=== PATIENT | female | born 1965 | race Caucasian/White ===

== ENCOUNTER 2016-06-01 10:56 | Emergency (ER) | payer MEDICAID, OTHER ==
--- NOTE | 2016-06-01 11:06 | ER Document Report ---
ED Medical Screen (RME) - General Stated Complaint: MOUTH PAIN Mode of Arrival: Ambulatory Information source: Patient Notes: Patient presents to the ED with multiple complaints. Reports headache from dental pain. C/O increased blood pressure, recently obtained medicaid, waiting for dental appointment june 26. Was prescribed antibiotics, penicillin, reports allergy. Was prescribed clindamycin but has not had it filled because she cannot afford it. Reports tramadol not helping pain. Reports cannot sleep. I have greeted and performed a rapid initial assessment of this patient. A comprehensive ED assessment and evaluation of the patient, analysis of test results and completion of the medical decision making process will be conducted by additional ED providers. TRAVEL OUTSIDE OF THE [place] IN LAST 30 DAYS: No - Related Data Allergies/Adverse Reactions: acetaminophen [From Tylenol] Allergy (Verified 01/30/15 16:18) Past Medical History Neurological Medical History: Reports: Hx Migraine, Hx Seizures. Denies: Hx Cerebrovascular Accident GI Medical History: Reports: Hx Hepatitis - Hep C Musculoskeltal Medical History: Reports Hx Arthritis, Reports Hx Fibromyalgia, Reports Hx Musculoskeletal Deformity, Reports Hx Musculoskeletal Trauma Skin Medical History: Reports Hx MRSA Psychiatric Medical History: Reports: Hx Bipolar Disorder Traumatic Medical History: Reports: Hx Fractures Infectious Medical History: Reports: Hx Hepatitis - Hep C, Hx MRSA Past Surgical History: Reports: Hx Breast Surgery - BREAST REDUCTION, Hx Tonsillectomy - Immunizations Hx Diphtheria, Pertussis, Tetanus Vaccination: No
[2016-06-01] MEDS ORDERED: CLINDAMYCIN HCL 150 MG CAPSULE PO ONE (11:44)
[2016-06-01] MEDS ORDERED: BUPIVACAINE HCL 0.5 % INJ/PF 30 ML SDV INJ ONE (11:44)
--- NOTE | 2016-06-01 11:50 | ER Document Report ---
HPI - HPI Patient complains to provider of: toothache Pain Level: 5 Context: Patient is a 50-year-old female presents emergency Department complaining of dental pain. Patient was recently seen at urgent care this past week for pain most severely in her left upper jaw and right lower jaw with multiple dental fractures that she's had for about a year. Patient states she is due to see a dentist on June 26 have her teeth pulled. Patient states that she went to urgent care she was put on penicillin tramadol and told to follow-up with her dentist. Patient states that she found out she was allergic to penicillin and was put on clindamycin but hasn't been able to pay for it, newly on Medicaid. At this time patient denies any difficulty swallowing, foul odor, muffled speech , drooling. Patient is able to tolerate by mouth without any difficulty, denies any fever, chills, lethargy. Patient also admits to right sciatica for chronic back pain. Patient denies any urinary/stool incontinence, saddle anesthesia. Patient able to ambulate. Not been doing any ice, heat. No stretches. Eyes any recent injury or fall. Patient is currently going through disability application, history of hep C. - REPRODUCTIVE Reproductive: DENIES: : - DERM Skin Color: Normal Past Medical History - General Information source: Patient - Social History Smoking Status: Never Smoker Chew tobacco use (# tins/day): No Frequency of alcohol use: Occasional Drug Abuse: None Family History: Reviewed & Not Pertinent Patient has suicidal ideation: No Patient has homicidal ideation: No Neurological Medical History: Reports: Hx Migraine, Hx Seizures. Denies: Hx Cerebrovascular Accident Renal/ Medical History: Denies: Hx Peritoneal Dialysis GI Medical History: Reports: Hx Hepatitis - Hep C Musculoskeltal Medical History: Reports Hx Arthritis, Reports Hx Fibromyalgia, Reports Hx Musculoskeletal Deformity, Reports Hx Musculoskeletal Trauma Skin Medical History: Reports Hx MRSA Psychiatric Medical History: Reports: Hx Bipolar Disorder Traumatic Medical History: Reports: Hx Fractures Infectious Medical History: Reports: Hx Hepatitis - Hep C, Hx MRSA Past Surgical History: Reports: Hx Breast Surgery - BREAST REDUCTION, Hx Tonsillectomy - Immunizations Hx Diphtheria, Pertussis, Tetanus Vaccination: No Vertical Provider Document - CONSTITUTIONAL Agree With Documented VS: Yes Exam Limitations: No Limitations General Appearance: WD/WN, No Apparent Distress - INFECTION CONTROL TRAVEL OUTSIDE OF THE [place] IN LAST 30 DAYS: No - HEENT HEENT: Atraumatic, Normal ENT Exam, Normocephalic, PERRLA Mouth Diagram: 1 - Dental caries 2 - Dental caries 3 - Dental caries Notes: Evidence of gingival inflammation, no evidence of abscess. No evidence of retropharyngeal or peritonsillar abscess. - NECK Neck: Normal Inspection. negative: Lymphadenopathy-Left, Lymphadenopathy-Right Notes: No evidence of Brandon angina - RESPIRATORY Respiratory: Breath Sounds Normal, No Respiratory Distress, Chest Non-Tender. negative: Rales, Rhonchi, Wheezing O2 Sat by Pulse Oximetry: 99 - CARDIOVASCULAR Cardiovascular: Regular Rate, Regular Rhythm, No Murmur Pulses: Normal: Radial - MUSCULOSKELETAL/EXTREMETIES Musculoskeletal/Extremeties: MAEW, FROM, Non-Tender, No Edema. negative: Eccymosis - NEURO Level of Consciousness: Awake, Alert, Appropriate Motor/Sensory: No Motor Deficit, No Sensory Deficit Course - Re-evaluation Re-evalutation: 06/01/16 11:48 Patient is a 50-year-old female presents emergency department with multiple complaints but. He #1 was tooth pain. Patient is on clindamycin for dental infection and taking tramadol which she says does not help with her symptoms for toothache. Due to follow up with dentist on June 26. Will do a Sensorcaine dental block at the bedside and have her follow-up with her dentist at her earliest convenience. Received 6ml total for dental block, 3ml for left upper and 3ml for right lower - Vital Signs Vital signs: Temp Pulse Resp BP Pulse Ox 97.8 F 78 20 145/101 H 99 06/01/16 11:00 06/01/16 11:00 06/01/16 11:00 06/01/16 11:00 06/01/16 11:00 Discharge - Discharge Clinical Impression: Tooth ache, Sciatic leg pain Condition: Good Disposition: HOME, SELF-CARE Instructions: [facility], Clindamycin ([facility]), Oral Narcotic Medication ([facility]), Sciatica ([facility]), Stretching Exercises for the Back ([facility]), Warm Packs ([facility]), Ice Packs ([facility]) Prescriptions: Oxycodone HCl 5 mg PO Q6HP PRN #15 tablet PRN Reason: Clindamycin HCl 150 mg PO QID 10 Days Forms: Elevated Blood Pressure
[2016-06-01 12:50] VITALS: BP 134/91
== END 2016-06-01 12:45 | disposition home or self-care (01) ==
LOC: ER 10:56
DX: K08.89 Other specified disorders of teeth and supporting structures (principal); M54.30 Sciatica, unspecified side
CPT/HCPCS: 99282; J3490

== ENCOUNTER 2016-07-18 14:50 | Emergency (ER) | payer MEDICAID, OTHER ==
--- NOTE | 2016-07-18 16:37 | ER Document Report ---
ED General - General Chief Complaint: Nausea Stated Complaint: NAUSEA,RIGHT LEG PAIN Notes: The patient is a 50-year-old female, past medical history bipolar, chronic right sciatica pain, presents with a dull right-sided headache after she hit her head a few days ago. She feels like her head is "foggy". In addition, she is having her usual right leg pain that is similar to her sciatica. She follows with her primary care physician and is taking Neurontin, tramadol and baclofen and is scheduled to see pain management for this pain. She is also feeling nauseous, but this resolved after using her Zofran at home. She denies LOC, syncope, neck pain, weakness, numbness, tingling, fevers, vomiting, abdominal pain or neck pain. TRAVEL OUTSIDE OF THE [place] IN LAST 30 DAYS: No - Related Data Allergies/Adverse Reactions: acetaminophen [From Tylenol] Allergy (Verified 07/18/16 16:10) Penicillins Allergy (Verified 07/18/16 16:10) Past Medical History - General Information source: Patient - Social History Smoking Status: Unknown if Ever Smoked Family History: Reviewed & Not Pertinent Patient has suicidal ideation: No Patient has homicidal ideation: No Neurological Medical History: Reports: Hx Migraine, Hx Seizures. Denies: Hx Cerebrovascular Accident Renal/ Medical History: Denies: Hx Peritoneal Dialysis GI Medical History: Reports: Hx Hepatitis - Hep C Musculoskeltal Medical History: Reports Hx Arthritis, Reports Hx Fibromyalgia, Reports Hx Musculoskeletal Deformity, Reports Hx Musculoskeletal Trauma Skin Medical History: Reports Hx MRSA Psychiatric Medical History: Reports: Hx Bipolar Disorder Traumatic Medical History: Reports: Hx Fractures Infectious Medical History: Reports: Hx Hepatitis - Hep C, Hx MRSA Past Surgical History: Reports: Hx Breast Surgery - BREAST REDUCTION, Hx Tonsillectomy - Immunizations Hx Diphtheria, Pertussis, Tetanus Vaccination: No Review of Systems - Review of Systems Notes: REVIEW OF SYSTEMS: CONSTITUTIONAL: -fevers, -chills EENT: -eye pain, -difficulty swallowing, -nasal congestion CARDIOVASCULAR:-chest pain, -syncope. RESPIRATORY: -cough, -SOB GASTROINTESTINAL: -abdominal pain, -nausea, -vomiting, -diarrhea GENITOURINARY: -dysuria, -hematuria MUSCULOSKELETAL: +right hip pain, -back pain, -neck pain SKIN: -rash or skin lesions. HEMATOLOGIC: -easy bruising or bleeding. LYMPHATIC: -swollen, enlarged glands. NEUROLOGICAL: -altered mental status or loss of consciousness, +headache PSYCHIATRIC: -anxiety, -depression. ALL OTHER SYSTEMS REVIEWED AND NEGATIVE. Physical Exam - Vital signs Vitals: Temp Pulse Resp BP Pulse Ox 97.8 F 83 18 137/103 H 99 07/18/16 14:55 07/18/16 14:55 07/18/16 14:55 07/18/16 14:55 07/18/16 14:55 - Notes Notes: PHYSICAL EXAMINATION: GENERAL: Well-appearing, well-nourished and in no acute distress. HEAD: Atraumatic, normocephalic. EYES: Pupils equal round and reactive to light, extraocular movements intact, sclera anicteric, conjunctiva are normal. ENT: nares patent, oropharynx clear without exudates. Moist mucous membranes. NECK: Normal range of motion, supple without lymphadenopathy LUNGS: Breath sounds clear to auscultation bilaterally and equal. No wheezes rales or rhonchi. HEART: Regular rate and rhythm without murmurs ABDOMEN: Soft, nontender, normoactive bowel sounds. No guarding, no rebound. No masses appreciated. EXTREMITIES: Normal range of motion, no pitting or edema. No cyanosis. NEUROLOGICAL: Cranial nerves grossly intact. Normal speech, normal gait. Tingling down back of right leg. PSYCH: Normal mood, normal affect. SKIN: Warm, Dry, normal turgor, no rashes or lesions noted. Course - Re-evaluation Re-evalutation: Patient's right hip pain and tingling down the back of her right leg is chronic in nature and she is following with her primary care physician and pain management physician. Strong distal pulses. Told her that management of her sciatica pain should be continued by her PMD and that the emergency room could not manage chronic issues. After she hit her head a few days ago, she has had a headache. Will obtain a head CT and provide pain medication. CT Head does not show any active bleeding or other acute issues. Her headache resolved after Fioricet. Do not suspect SAH, ICH or meningitis at this time. No other acute issues identified. Will have her follow-up with the primary care physician. - Vital Signs Vital signs: Temp Pulse Resp BP Pulse Ox 98.0 F 64 16 127/88 H 100 07/18/16 16:46 07/18/16 16:46 07/18/16 16:46 07/18/16 16:46 07/18/16 16:46 - Diagnostic Test Radiology reviewed: Image reviewed, Reports reviewed Radiology results interpreted by me: CT Head: NAD Discharge - Discharge Clinical Impression: Headache Qualifiers: Headache type: unspecified Headache chronicity pattern: unspecified pattern Intractability: not intractable Qualified Code(s): R51 - Headache Condition: Good Disposition: HOME, SELF-CARE Additional Instructions: Follow-up with your primary care physician and pain management physician for further treatment of your hip pain. Motrin for your headache. HEADACHE: The physician does not feel that the headache you are experiencing has a serious underlying cause. Most headaches are due to emotional stress, with resultant muscle tension (tension headache). Occasionally, headaches are secondary to changes in the blood vessels of the scalp (vascular headache and migraine headache). Sometimes, a headache is the first symptom of another developing illness, such as a viral infection. You have no evidence of stroke, bleeding, meningitis, or other serious cause of your headache. The treatment of headaches varies with the severity and cause of the pain. Not all headaches need pain shots. In fact, there is evidence that using narcotics for headaches may make them worse in the long run. The physician will determine the therapy that's in your best interest. If you develop a fever, if the headache is different from any you've previously experienced, or if the headache progressively worsens, then call your physician at once or go to the emergency room. FOLLOW-UP CARE: If you have been referred to a physician for follow-up care, call the physician s office for an appointment as you were instructed or within the next two days. If you experience worsening or a significant change in your symptoms, notify the physician immediately or return to the Emergency Department at any time for re-evaluation. Sciatica Your symptoms suggest "sciatica." The pain of sciatica typically radiates down the leg. Numbness in the foot or calf may also occur. Sciatica is caused by irritation of the sciatic nerve or its branches. The irritation can be due to a herniated disk in the spine, swelling and inflammation in the muscles surrounding the sciatic nerve, or direct injury of the nerve itself. Most cases of sciatica will resolve with medical treatment. Bed rest is usually recommended initially. Surgery is only necessary when the condition will not improve with rest and antiinflammatory medication. Muscle relaxers are often given if muscle soreness is present. A CAT scan of the back may be performed if a herniated disk is suspected. Re-examination is necessary if you develop increasing numbness, localized weakness in the foot or ankle, or if the pain does not respond to rest. Referrals: [facility] [Provider Group] - Follow up as needed
[2016-07-18 16:47] VITALS: BP 127/88
[2016-07-18] MEDS ORDERED: BUTALB/ACETAMINOPHEN/CAFFEINE 1 TAB EACH PO ONE (17:08)
== END 2016-07-18 16:50 | disposition home or self-care (01) ==
LOC: ER 14:50
DX: R51 Headache (principal); R11.0 Nausea; M79.604 Pain in right leg; Z79.899 Other long term (current) drug therapy
CPT/HCPCS: 99283; 70450; J3490

== ENCOUNTER → 2016-08-12 | Outpatient (CLI) | payer MEDICAID | LOC: WI 12:03 | PROVIDERS: ATTEND Internal Medicine Gastroenterology | DX: B18.2 Chronic viral hepatitis C (principal) | CPT/HCPCS: 76705 ==

== ENCOUNTER 2016-09-24 08:24 | Emergency (ER) | payer MEDICAID ==
[2016-09-24] MEDS ORDERED: DIPHENHYDRAMINE HCL 25 MG CAPSULE PO ONE (09:59)
--- NOTE | 2016-09-24 09:59 | ER Document Report ---
HPI - HPI Patient complains to provider of: bug bites Onset: Other - for the past two days Onset/Duration: Gradual Quality of pain: Other - itching Pain Level: 5 Associated Symptoms: Other - no draiange, swelling, warth/heat. denies: Fever Similar symptoms previously: No Recently seen / treated by doctor: No - CARDIOVASCULAR Cardiovascular: DENIES: Chest pain - REPRODUCTIVE Reproductive: DENIES: : Past Medical History - Social History Smoking Status: Never Smoker Chew tobacco use (# tins/day): No Frequency of alcohol use: None Drug Abuse: None Family History: Reviewed & Not Pertinent Patient has suicidal ideation: No Patient has homicidal ideation: No Neurological Medical History: Reports: Hx Migraine, Hx Seizures. Denies: Hx Cerebrovascular Accident Renal/ Medical History: Denies: Hx Peritoneal Dialysis GI Medical History: Reports: Hx Hepatitis - Hep C Musculoskeltal Medical History: Reports Hx Arthritis, Reports Hx Fibromyalgia, Reports Hx Musculoskeletal Deformity, Reports Hx Musculoskeletal Trauma Skin Medical History: Reports Hx MRSA Psychiatric Medical History: Reports: Hx Bipolar Disorder Traumatic Medical History: Reports: Hx Fractures Infectious Medical History: Reports: Hx Hepatitis - Hep C, Hx MRSA Past Surgical History: Reports: Hx Breast Surgery - BREAST REDUCTION, Hx Tonsillectomy - Immunizations Hx Diphtheria, Pertussis, Tetanus Vaccination: No Vertical Provider Document - CONSTITUTIONAL Agree With Documented VS: Yes Exam Limitations: No Limitations General Appearance: WD/WN, No Apparent Distress - INFECTION CONTROL TRAVEL OUTSIDE OF THE [place] IN LAST 30 DAYS: No - RESPIRATORY O2 Sat by Pulse Oximetry: 94 - DERM Integumentary: Warm, Dry, No Rash Adult Front & Back Diagram: 1 - 3 bug bites with central scabbing 2/2 patient continually pickaing at them , no evidence of cellulitis or abscess Course - Re-evaluation Re-evalutation: 09/24/16 9:45 Patient is a 51-year-old female hemodynamically stable, no acute distress and afebrile. Blood bites noted on right lower extremity without evidence of cellulitis or abscess. Discussed with patient to dressed with Band-Aid and antibacterial cream and to leave alone. Can follow-up with primary care as needed. - Vital Signs Vital signs: Temp Pulse Resp BP Pulse Ox 98.1 F 95 18 146/93 H 94 09/24/16 08:33 09/24/16 08:33 09/24/16 08:33 09/24/16 08:33 09/24/16 08:33 Discharge - Discharge Clinical Impression: Bug bites Condition: Good Disposition: HOME, SELF-CARE Instructions: Insect Bites ([facility]), Use of Diphenhydramine Additional Instructions: Dress with neosporin and band aids Benadryl as needed for the itching Do not pick or scratch Forms: Elevated Blood Pressure Referrals: BISHOP RUIZ MD [Primary Care Provider] - Follow up as needed
[2016-09-24 10:02] VITALS: BP 138/88
== END 2016-09-24 09:55 | disposition home or self-care (01) ==
LOC: ER 08:24
DX: S80.861A Insect bite (nonvenomous), right lower leg, initial encounter (principal); W57.XXXA Bitten or stung by nonvenomous insect and other nonvenomous arthropods, initial encounter; Z86.14 Personal history of Methicillin resistant Staphylococcus aureus infection
CPT/HCPCS: 99281

== ENCOUNTER 2016-10-10 03:16 | Emergency (ER) | payer MEDICAID ==
--- NOTE | 2016-10-10 05:15 | ER Document Report ---
ED Skin Rash/Insect Bite/Abscs - General Chief Complaint: Insect Bite Stated Complaint: ANKLE PAIN Time Seen by Provider: 10/10/16 04:17 Mode of Arrival: Ambulatory Information source: Patient Notes: 51-year-old female presents to ED for bites to right foot and ankle left ankle and right thigh. She states these areas are swollen and achy. TRAVEL OUTSIDE OF THE [place] IN LAST 30 DAYS: No - HPI Patient complains to provider of: Insect bite Onset: Other - Left fourth Onset/Duration: Gradual Quality of pain: Achy Severity: Moderate Pain Level: 2 Skin Character: Other - Insect bites to both ankles and left eye Quality of rash: Itchy, Painful Identify cause: No - Insect bite Exacerbated by: Denies Relieved by: Denies Similar symptoms previously: Yes Recently seen / treated by doctor: Yes - Related Data Allergies/Adverse Reactions: acetaminophen [From Tylenol] Allergy (Verified 10/10/16 05:45) Penicillins Allergy (Verified 10/10/16 05:45) Past Medical History - General Information source: Patient - Social History Smoking Status: Never Smoker Cigarette use (# per day): No Chew tobacco use (# tins/day): No Smoking Education Provided: No Frequency of alcohol use: None Drug Abuse: None Occupation: no Lives with: Friend Family History: Reviewed & Not Pertinent Patient has suicidal ideation: No Patient has homicidal ideation: No - Past Medical History Cardiac Medical History: Reports: None Pulmonary Medical History: Reports: None EENT Medical History: Reports: None Neurological Medical History: Reports: Hx Migraine, Hx Seizures Endocrine Medical History: Reports: None Renal/ Medical History: Reports: None Malignancy Medical History: Reports: None GI Medical History: Reports: Hx Hepatitis - Hep C Musculoskeltal Medical History: Reports Hx Arthritis, Reports Hx Fibromyalgia, Reports Hx Musculoskeletal Deformity, Reports Hx Musculoskeletal Trauma Skin Medical History: Reports Hx MRSA Psychiatric Medical History: Reports: Hx Bipolar Disorder Traumatic Medical History: Reports: Hx Fractures Infectious Medical History: Reports: Hx Hepatitis - Hep C, Hx MRSA Past Surgical History: Reports: Hx Breast Surgery - BREAST REDUCTION, Hx Tonsillectomy - Immunizations Hx Diphtheria, Pertussis, Tetanus Vaccination: No Review of Systems - Review of Systems Constitutional: No symptoms reported EENT: No symptoms reported Cardiovascular: No symptoms reported Respiratory: No symptoms reported Gastrointestinal: No symptoms reported Genitourinary: No symptoms reported Female Genitourinary: No symptoms reported Musculoskeletal: No symptoms reported Skin: Other - multiple insect bites to both ankles feet and left upper leg Hematologic/Lymphatic: No symptoms reported Neurological/Psychological: No symptoms reported -: Yes All other systems reviewed and negative Physical Exam - Vital signs Vitals: Temp Pulse Resp BP Pulse Ox 97.8 F 86 18 102/74 96 10/10/16 03:25 10/10/16 03:25 10/10/16 03:25 10/10/16 03:25 10/10/16 03:25 Interpretation: Normal - General General appearance: Appears well, Alert - HEENT Head: Normocephalic, Atraumatic Eyes: Normal Pupils: PERRL - Respiratory Respiratory status: No respiratory distress Chest status: Nontender Breath sounds: Normal Chest palpation: Normal - Cardiovascular Rhythm: Regular Heart sounds: Normal auscultation Murmur: No - Abdominal Inspection: Normal Distension: No distension Bowel sounds: Normal Tenderness: Nontender Organomegaly: No organomegaly - Back Back: Normal, Nontender - Extremities General upper extremity: Normal inspection, Nontender, Normal color, Normal ROM , Normal temperature General lower extremity: Normal inspection, Nontender, Normal color, Normal ROM , Normal temperature, Normal weight bearing. No: Debra's sign - Neurological Neuro grossly intact: Yes Cognition: Normal Orientation: AAOx4 [place] Coma Scale Eye Opening: Spontaneous [place] Coma Scale Verbal: Oriented [place] Coma Scale Motor: Obeys Commands [place] Coma Scale Total: 15 Speech: Normal Motor strength normal: LUE, RUE, LLE, RLE Sensory: Normal - Psychological Associated symptoms: Normal affect, Normal mood - Skin Skin Temperature: Warm Skin Moisture: Dry Skin Color: Normal Skin irregularity: Rash Location of irregularity: Extremities Irregularity with: Swelling, Tenderness Course - Vital Signs Vital signs: Temp Pulse Resp BP Pulse Ox 97.4 F 72 14 98/56 L 99 10/10/16 05:36 10/10/16 05:36 10/10/16 05:36 10/10/16 05:36 10/10/16 05:36 Discharge - Discharge Clinical Impression: Insect bite Qualifiers: Encounter type: initial encounter Qualified Code(s): W57.XXXA - Bitten or stung by nonvenomous insect and other nonvenomous arthropods, initial encounter Condition: Stable Disposition: HOME, SELF-CARE Additional Instructions: Insect Bites You have been bitten by an insect. These bites can cause two types of swelling: an initial swelling due to insect saliva or injected poison, and a late reaction due to your body's allergic reaction. This initial local reaction may be uncomfortable but is not dangerous. Often there's an itchy "hive" at the bite location. This is treated with antihistamines, cold compresses, and resting the affected body part. The later reaction often develops about the second day. The entire area becomes very swollen, red, itchy, and tender. This is an allergic reaction. Your body is attacking the leftover insect saliva or venom. This type of allergy is unpleasant, but not dangerous. We treat this swelling with cortisone -type medicine. Sometimes we use antibiotics if we're worried about infection. Antihistamines help with the itch. If you develop a fever, chills, a red streak, or swollen glands in the area of the bite, infection may be starting. Return at once. Diphenhydramine The use of diphenhydramine (Benadryl) has been recommended to control allergic symptoms. The 25 mg strength is available over- the-counter, as well as the elixir. This antihistamine is used for many symptoms. It's useful for itching, watering eyes and nose, allergic swelling, hives, and insect stings. The medication can be repeated four times daily. Age Elixir (12.5 mg/tsp) 25 mg pill 1 yr 1/4 tsp 2-3 yr 1/2 tsp 4-8 yr 1 tsp 9-14 yr 2 tsp one tab adult 1-2 tabs Antihistamines may cause drowsiness, especially with the first dose. Do not operate machinery or drive while under the effects of the medication. Do not combine the medication with alcohol, or with any other medication without talking to your doctor. Ice & Elevation Apply ice packs frequently against the painful area. Many different schedules are recommended, such as "20 minutes on, 20 minutes off" or "one hour ice, two hours rest." If you need to work, you may need to go longer between ice treatments. You should plan to have the area ice packed AT LEAST one- fourth of the time. The ice should be applied over the wrap, tape, or splint, or over a layer of cloth -- not directly against the skin. Some ice bags have a built-in cloth and can be put directly on the skin. Your injured part should be elevated as much as possible over the next 48 hours. Try to keep the injury above the level of the heart. Avoid use of the injured area. Elevation and rest will decrease the swelling. FOLLOW-UP CARE: If you have been referred to a physician for follow-up care, call the physician s office for an appointment as you were instructed or within the next two days. If you experience worsening or a significant change in your symptoms, notify the physician immediately or return to the Emergency Department at any time for re-evaluation.
[2016-10-10 05:39] VITALS: BP 98/56
== END 2016-10-10 05:36 | disposition home or self-care (01) ==
LOC: ER 03:16
DX: S90.561A Insect bite (nonvenomous), right ankle, initial encounter (principal); M79.651 Pain in right thigh; M25.571 Pain in right ankle and joints of right foot; M25.572 Pain in left ankle and joints of left foot; W57.XXXA Bitten or stung by nonvenomous insect and other nonvenomous arthropods, initial encounter
CPT/HCPCS: 99281

== ENCOUNTER → 2017-10-01 | Outpatient (CLI) | payer MEDICAID ==
--- NOTE | 2017-10-01 15:51 | WOMENS IMAGING REPORT ---
EXAM DESCRIPTION: BILAT SCREENING MAMMO W/CAD COMPLETED DATE/TIME: 10/01/2017 1:09 pm REASON FOR STUDY: ROUTINE SCREENING;Z12.31 Z12.31 ENCNTR SCREEN MAMMOGRAM FOR MALIGNANT NEOPLASM OF JUMANA COMPARISON: None available TECHNIQUE: Standard craniocaudal and mediolateral oblique views of each breast recorded using digita l acquisition. LIMITATIONS: None. FINDINGS: Findings present which are benign by mammographic criteria. No suspicious masses, calcifi cations or architectural distortion. Pertinent benign findings: Benign coarse dense right breast retroareolar calcification. Benign asymm etric fibroglandular tissue in the lateral aspect left breast. Postsurgical changes from remote prio r breast reduction. Read with the assistance of CAD. .[facility] - R2 Cenova Version 1.3 .[facility] Imaging - R2 Cenova Version 1.3 .[facility] - R2 Cenova Version 2.4 .[facility] [place] Cenova Version 2.4 .[facility] - R2 Shutdown Coordinator Version 9.2 Benign mammographic findings may include one or more of the following: Smooth masses, popcorn/rim/co arse calcifications, asymmetries, post-procedure changes, and lesions with long-standing stability. IMPRESSION: BENIGN MAMMOGRAPHIC FINDINGS. BIRADS 2 BREAST DENSITY: a. The breasts are almost entirely fatty. BIRAD: 2 BENIGN FINDING(S) RECOMMENDATION: ROUTINE SCREENING Please continue yearly bilateral screening mammography in September 2018. Consider bilateral screening to mosynthesis COMMENT: The patient has been notified of the results by letter per MQSA requirements. Additional no tification policies are in place for contacting patient with suspicious or incomplete findings. Quality ID #225: The [employer] recommends an annual screening mammogram for women aged 40 years or over. This facility utilizes a reminder system to ensure that all patients receive reminder letters, and/or direct phone calls for appointments. This includes reminders for routine scr eening mammograms, diagnostic mammograms, or other Breast Imaging Interventions when appropriate. Th is patient will be placed in the appropriate reminder system. The [employer] (ACR) has developed recommendations for screening MRI of the breast s in certain patient populations, to be used in conjunction with mammography. Breast MRI surveillanc e may be appropriate for women with more than 20% lifetime risk of developing breast cancer as deter mined by genetic testing, significant family history of the disease, or history of mantle radiation f or Hodgkins Disease. ACR Practice Guidelines 2008. TECHNICAL DOCUMENTATION: FINDING NUMBER: (1) ASSESSMENT: (1) JOB ID: [id number] [employer]- All Rights Reserved Reading location - IP/workstation name: [email or web address]
== END ==
LOC: WI 12:39
PROVIDERS: ATTEND Nurse Practitioner Family
DX: Z12.31 Encounter for screening mammogram for malignant neoplasm of breast (principal)
CPT/HCPCS: 77067

== ENCOUNTER → 2018-02-02 | Outpatient (CLI) | payer MEDICARE, MEDICAID ==
[2018-02-02 17:25] LABS: ABSOLUTE BASOPHILS # (AUTO) 0.1 10^3/uL (0.0-0.2); ABSOLUTE EOSINOPHILS # (AUTO) 0.1 10^3/uL (0.0-0.6); ABSOLUTE LYMPHOCYTES (AUTO) 2.1 10^3/uL (0.5-4.7); ABSOLUTE MONOCYTES (AUTO) 0.7 10^3/uL (0.1-1.4); ABSOLUTE NEUT (AUTO) 3.5 10^3/uL (1.7-8.2); BASOPHILS % (AUTO) 1.2 % (0-2); EOSINOPHILS % (AUTO) 1.7 % (0-6); HEMATOCRIT 42.9 % (36.0-47.0); HEMOGLOBIN 14.5 g/dL (12.0-15.5); LYMPHOCYTES % (AUTO) 32.8 % (13-45); MEAN CORPUSCULAR HEMOGLOBIN 31.4 pg (27.0-33.4); MEAN CORPUSCULAR HGB CONC 33.7 g/dL (32.0-36.0); MEAN CORPUSCULAR VOLUME 93 fl (80-97); MONOCYTES % (AUTO) 10.5 % (3-13); PLATELET COUNT 206 10^3/uL (150-450); SEGMENTED NEUTROPHILS % (AUTO) 53.8 % (42-78); TOTAL CELLS COUNTED % (AUTO) 100 %; WHITE BLOOD COUNT 6.4 10^3/uL (4.0-10.5)
[2018-02-02 17:40] LABS: ALANINE AMINOTRANSFERASE 22 U/L (9-52); ALBUMIN 4.5 g/dL (3.5-5.0); ALKALINE PHOSPHATASE 76 U/L (38-126); ANION GAP 12 (5-19); ASPARTATE AMINO TRANSFERASE 25 U/L (14-36); BILIRUBIN,DIRECT 0.1 mg/dL (0.0-0.4); BILIRUBIN,TOTAL 0.5 mg/dL (0.2-1.3); BLOOD UREA NITROGEN 26 mg/dL (7-20); CALCIUM 9.9 mg/dL (8.4-10.2); CARBON DIOXIDE 26 mmol/L (22-30); CHLORIDE 105 mmol/L (98-107); GLUCOSE 92 mg/dL (75-110); POTASSIUM 4.6 mmol/L (3.6-5.0); SODIUM 142.6 mmol/L (137-145); TOTAL PROTEIN 8.1 g/dL (6.3-8.2)
== END ==
LOC: OD 16:14
PROVIDERS: ATTEND Internal Medicine Gastroenterology
DX: B18.2 Chronic viral hepatitis C (principal)
CPT/HCPCS: 36415; 80053; 85025; 87521; 87522

== ENCOUNTER → 2018-06-23 | Outpatient (CLI) | payer MEDICAID, MEDICARE ==
--- NOTE | 2018-06-23 12:36 | RADIOLOGY REPORT (SQ) ---
EXAM DESCRIPTION: U/S ABDOMEN LIMITED W/O DOP COMPLETED DATE/TIME: 06/23/2018 12:17 pm REASON FOR STUDY: R10.11 RIGHT UPPER QUADRANT PAIN R10.11 RIGHT UPPER QUADRANT PAIN COMPARISON: 08/12/2016 TECHNIQUE: Dynamic and static grayscale images acquired of the abdomen and recorded on PACS. Coryo marcelo selected color Doppler and spectral images recorded. LIMITATIONS: None. FINDINGS: PANCREAS: No masses. The tail of the pancreas was poorly seen. LIVER: No masses. Echotexture normal. LIVER VASCULATURE: Normal directional flow of the main portal vein and hepatic veins. GALLBLADDER: No stones. Normal wall thickness. No pericholecystic fluid. ULTRASOUND-DETECTED ORR'S SIGN: Negative. INTRAHEPATIC DUCTS AND COMMON DUCT: CBD and intrahepatic ducts normal caliber. No filling defects. INFERIOR VENA CAVA: Normal flow. AORTA: No aneurysm. RIGHT KIDNEY: Normal size, 11.2 cm. Normal echogenicity. No solid or suspicious masses. No hydroneph rosis. No calcifications. PERITONEAL AND RIGHT PLEURAL SPACE: No ascites or effusions. OTHER: No other significant findings. IMPRESSION: NORMAL RIGHT UPPER QUADRANT ULTRASOUND. TECHNICAL DOCUMENTATION: JOB ID: [id number] [employer]- All Rights Reserved Reading location - IP/workstation name: [email or web address]
--- NOTE | 2018-06-23 15:23 | RADIOLOGY REPORT (SQ) ---
EXAM DESCRIPTION: NM HIDA SCAN WITH CCK COMPLETED DATE/TIME: 06/23/2018 2:49 pm REASON FOR STUDY: R10.11 RIGHT UPPER QUADRANT PAIN R10.11 RIGHT UPPER QUADRANT PAIN COMPARISON: None. RADIONUCLIDE AND DOSE: DOSAGE RADIONUCLIDE: 5.23 millicuries Tc99m Mebrofenin. DOSAGE CCK: 1.9 micrograms. DOSAGE MORPHINE: Not required. The route of agent administration: Intravenous TECHNIQUE: Serial imaging right upper quadrant up to 60 minutes following injection of radionuclide. CCK injected after gallbladder visualized. LIMITATIONS: None. FINDINGS: LIVER: Normal visualization without areas of photopenia. INTRAHEPATIC BILE DUCTS: Normal size and no delay in visualization. COMMON BILE DUCT: Normal without dilatation. GALLBLADDER: Normal visualization. Calculated ejection fraction of 29%. Normal range is greater th an 35%. PHYSICAL RESPONSE: Patients presenting complaint were reproduced. OTHER: No other significant finding. IMPRESSION: 1. ABNORMAL STUDY. GALLBLADDER EJECTION FRACTION OF 29%(normal range is greater than 35 %). EVIDENCE FOR BILIARY DYSKINESIS. 2. Patient's symptoms were reproduced following CCK administration. TECHNICAL DOCUMENTATION: JOB ID: [id number]- All Rights Reserved Reading location - IP/workstation name: [email or web address]
== END ==
LOC: RAD 14:53
PROVIDERS: ATTEND Internal Medicine Gastroenterology
DX: K82.8 Other specified diseases of gallbladder (principal); R10.11 Right upper quadrant pain
CPT/HCPCS: 76705; 78227; J2805; A9537; Q9969

== ENCOUNTER 2018-12-23 12:47 | Emergency (ER) | payer MEDICARE, MEDICAID ==
--- NOTE | 2018-12-23 13:32 | ER Document Report ---
ED Medical Screen (RME) - General TRAVEL OUTSIDE OF THE [place] IN LAST 30 DAYS: No <STEPHENIE CARMONA - Last Filed: 12/23/18 13:31> <BRETSAYDA Phillips - Last Filed: 12/23/18 16:21> - General Chief Complaint: Leg Swelling Stated Complaint: LEG SWELLING Time Seen by Provider: 12/23/18 13:11 Primary Care Provider: JORDAN LINO MD [ACTIVE STAFF] - Follow up as needed - [facility] Notes: 12/23/18 13:31 53-year-old female to the emergency department with multiple complaints. She reports bilateral leg swelling for some time that is gotten worse over the past week as well as left-sided chest pain that radiates down her arm for the past several days. She also reports multiple painful insect bites to her back that occurred yesterday. She states that an urgent care provider placed her on antibiotics and asked her to come to the emergency department for further evaluation of her leg swelling. She states that she has some shortness of breath as well. She denies any fevers, chills or any other complaints. Performed a brief medical screening exam on patient and have ordered initial lab work. We will have her follow with and further evaluated by main side provider. (STEPHENIE CARMONA) - Related Data Allergies/Adverse Reactions: acetaminophen [From Tylenol] Allergy (Verified 12/23/18 12:51) Penicillins Allergy (Verified 12/23/18 12:51) Past Medical History Neurological Medical History: Reports: Hx Migraine, Hx Seizures. Denies: Hx Cerebrovascular Accident Renal/ Medical History: Denies: Hx Peritoneal Dialysis GI Medical History: Reports: Hx Hepatitis - Hep C Musculoskeltal Medical History: Reports Hx Arthritis, Reports Hx Fibromyalgia, Reports Hx Musculoskeletal Deformity, Reports Hx Musculoskeletal Trauma Skin Medical History: Reports Hx MRSA Psychiatric Medical History: Reports: Hx Bipolar Disorder Traumatic Medical History: Reports: Hx Fractures Infectious Medical History: Reports: Hx Hepatitis - Hep C, Hx MRSA Past Surgical History: Reports: Hx Breast Surgery - BREAST REDUCTION, Hx Tonsillectomy - Immunizations Hx Diphtheria, Pertussis, Tetanus Vaccination: No <SETPHENIE CARMONA - Last Filed: 12/23/18 13:31> Physical Exam - General General appearance: Appears well, Alert - HEENT Head: Normocephalic, Atraumatic Eyes: Normal Conjunctiva: Normal Cornea: Normal Extraocular movements intact: Yes Pupils: PERRL - Respiratory Respiratory status: No respiratory distress Chest status: Nontender Breath sounds: Normal Chest palpation: Normal - Cardiovascular Rhythm: Regular Heart sounds: Normal auscultation Murmur: No - Abdominal Inspection: Normal Distension: No distension Bowel sounds: Normal Tenderness: Nontender - Back Back: Other - 3 small excoriations the patient states her bug bites does not appear infected approximately half centimeter diameter - Extremities General upper extremity: Normal inspection, Normal ROM General lower extremity: Other - +1 bilateral pitting edema lower extremities no signs of erythema no warmth - Neurological Neuro grossly intact: Yes Cognition: Normal Orientation: AAOx4 - Psychological Associated symptoms: Other - odd affect <SAYDA QUEEN - Last Filed: 12/23/18 16:21> - Vital signs Vitals: Temp Pulse Resp BP Pulse Ox 98.8 F 89 20 128/75 H 96 12/23/18 12:55 12/23/18 12:55 12/23/18 12:55 12/23/18 12:55 12/23/18 12:55 Course - Laboratory Result Diagrams: 12/23/18 14:38 12/23/18 14:38 <SAYDA QUEEN - Last Filed: 12/23/18 16:21> - Re-evaluation Re-evalutation: 12/23/18 16:18 All labs within normal limits are nonsignificant including normal troponin normal BNP. Patient does have bilateral leg swelling pending Doppler at this time but she states this is chronic in nature but is slightly worsened over the last 2 weeks. X-ray does not show any cardiomegaly and clear lung haque. Bi paulina on her back do not appear infected but she states she is on Keflex from an urgent care facility. Denies any chest pain or shortness of breath this time back and shoulder are chronic in nature. 12/23/18 16:20 (SAYDA QUEEN) - Vital Signs Vital signs: Temp Pulse Resp BP Pulse Ox 98.8 F 89 20 128/75 H 96 12/23/18 12:55 12/23/18 12:55 12/23/18 12:55 12/23/18 12:55 12/23/18 12:55 - Laboratory Laboratory results interpreted by me: 12/23/18 12/23/18 14:38 14:38 Carbon Dioxide 33 H Urine Blood SMALL H Ur Leukocyte Esterase LARGE H Doctor's Discharge <STEPHENIE CARMONA - Last Filed: 12/23/18 13:31> <SAYDA QUEEN - Last Filed: 12/23/18 16:21> - Discharge Referrals: JORDAN LINO MD [ACTIVE STAFF] - Follow up as needed
--- NOTE | 2018-12-23 14:40 | RADIOLOGY REPORT (SQ) ---
EXAM DESCRIPTION: CHEST 2 VIEWS COMPLETED DATE/TIME: 12/23/2018 2:11 pm REASON FOR STUDY: chest pain COMPARISON: None. EXAM PARAMETERS: NUMBER OF VIEWS: two views TECHNIQUE: Digital Frontal and Lateral radiographic views of the chest acquired. RADIATION DOSE: NA LIMITATIONS: none FINDINGS: LUNGS AND PLEURA: No opacities, masses or pneumothorax. No pleural effusion. MEDIASTINUM AND HILAR STRUCTURES: No masses or contour abnormalities. HEART AND VASCULAR STRUCTURES: Heart normal size. No evidence for failure. BONES: No acute findings. HARDWARE: None in the chest. OTHER: No other significant finding. IMPRESSION: No evidence of acute cardiopulmonary process. TECHNICAL DOCUMENTATION: JOB ID: [id number] [employer]- All Rights Reserved Reading location - IP/workstation name: [email or web address]
[2018-12-23 14:50] LABS: ABSOLUTE EOSINOPHILS # (AUTO) 0.1 10^3/uL (0.0-0.6); ABSOLUTE LYMPHOCYTES (AUTO) 1.5 10^3/uL (0.5-4.7); ABSOLUTE MONOCYTES (AUTO) 0.6 10^3/uL (0.1-1.4); BASOPHILS % (AUTO) 0.8 % (0-2); EOSINOPHILS % (AUTO) 2.5 % (0-6); HEMATOCRIT 38.1 % (36.0-47.0); HEMOGLOBIN 12.9 g/dL (12.0-15.5); LYMPHOCYTES % (AUTO) 29.1 % (13-45); MEAN CORPUSCULAR HEMOGLOBIN 31.2 pg (27.0-33.4); MEAN CORPUSCULAR HGB CONC 33.9 g/dL (32.0-36.0); MEAN CORPUSCULAR VOLUME 92 fl (80-97); MONOCYTES % (AUTO) 10.8 % (3-13); PLATELET COUNT 200 10^3/uL (150-450); RED BLOOD COUNT 4.14 10^6/uL (3.72-5.28); RED CELL DISTRIBUTION WIDTH 12.6 % (11.5-14.0); SEGMENTED NEUTROPHILS % (AUTO) 56.8 % (42-78); TOTAL CELLS COUNTED % (AUTO) 100 %; WHITE BLOOD COUNT 5.3 10^3/uL (4.0-10.5)
[2018-12-23 14:54] LABS: APPEARANCE,URINE SLIGHTLY-CLOUDY; BILIRUBIN,URINE NEGATIVE (NEGATIVE); COLOR,URINE YELLOW; GLUCOSE, URINE NEGATIVE (NEGATIVE); KETONES,URINE NEGATIVE (NEGATIVE); LEUKOCYTE ESTERASE,URINE LARGE (NEGATIVE); NITRITE,URINE NEGATIVE (NEGATIVE); PROTEIN,URINE NEGATIVE (NEGATIVE); URINE SPECIFIC GRAVITY 1.011; UROBILINOGEN,URINE NEGATIVE mg/dL (<2.0)
[2018-12-23 15:12] LABS: ALBUMIN 4.1 g/dL (3.5-5.0); ALKALINE PHOSPHATASE 58 U/L (38-126); ANION GAP 6 (5-19); ASPARTATE AMINO TRANSFERASE 35 U/L (14-36); BILIRUBIN,DIRECT 0.1 mg/dL (0.0-0.4); BILIRUBIN,TOTAL 0.5 mg/dL (0.2-1.3); BLOOD UREA NITROGEN 17 mg/dL (7-20); CALCIUM 9.4 mg/dL (8.4-10.2); CARBON DIOXIDE 33 mmol/L (22-30); CHLORIDE 102 mmol/L (98-107); GLUCOSE 91 mg/dL (75-110); POTASSIUM 4.5 mmol/L (3.6-5.0); TOTAL PROTEIN 7.1 g/dL (6.3-8.2)
[2018-12-23 15:23] LABS: NT PRO BNP 56 pg/mL (5-900)
[2018-12-23 15:25] LABS: TROPONIN I < 0.012 ng/mL
--- NOTE | 2018-12-23 15:34 | ER Document Report ---
ED General - General Chief Complaint: Leg Swelling Stated Complaint: LEG SWELLING Time Seen by Provider: 12/23/18 13:11 Primary Care Provider: JORDAN LINO MD [ACTIVE STAFF] - Follow up as needed TRAVEL OUTSIDE OF THE [place]. IN LAST 30 DAYS: No - HPI Notes: Patient presents with multiple complaints. She states that she has chronic lower back pain in her hips as well as her left shoulder and left elbow. No recent fevers or illnesses. She states that she has several bug bites back and was provided Keflex at the urgent care several days ago. She has been having chronic bilateral leg swelling for over 4 years and she said over the last 2 weeks has become worse in the absence of any chest pain or shortness of breath and she was concerned about her legs. She also states due to her chronic pain she is on Redfox. Her biggest concern is regarding her legs. She does not have any history of blood clots in her lungs or legs. - Related Data Allergies/Adverse Reactions: acetaminophen [From Tylenol] Allergy (Verified 12/23/18 12:51) Penicillins Allergy (Verified 12/23/18 12:51) Past Medical History - Social History Smoking Status: Unknown if Ever Smoked Family History: Reviewed & Not Pertinent Patient has suicidal ideation: No Patient has homicidal ideation: No Neurological Medical History: Reports: Hx Migraine, Hx Seizures. Denies: Hx Cerebrovascular Accident Renal/ Medical History: Denies: Hx Peritoneal Dialysis GI Medical History: Reports: Hx Hepatitis - Hep C Musculoskeletal Medical History: Reports Hx Arthritis, Reports Hx Fibromyalgia, Reports Hx Musculoskeletal Deformity, Reports Hx Musculoskeletal Trauma Skin Medical History: Reports Hx MRSA Psychiatric Medical History: Reports: Hx Bipolar Disorder Traumatic Medical History: Reports: Hx Fractures Infectious Medical History: Reports: Hx Hepatitis - Hep C, Hx MRSA Past Surgical History: Reports: Hx Breast Surgery - BREAST REDUCTION, Hx Tonsillectomy - Immunizations Hx Diphtheria, Pertussis, Tetanus Vaccination: No Review of Systems - Review of Systems Constitutional: No symptoms reported EENT: No symptoms reported Cardiovascular: No symptoms reported Respiratory: No symptoms reported Gastrointestinal: No symptoms reported Genitourinary: No symptoms reported Female Genitourinary: No symptoms reported Musculoskeletal: See HPI Skin: See HPI Hematologic/Lymphatic: No symptoms reported Neurological/Psychological: No symptoms reported Physical Exam - Vital signs Vitals: Temp Pulse Resp BP Pulse Ox 98.8 F 89 20 128/75 H 96 12/23/18 12:55 12/23/18 12:55 12/23/18 12:55 12/23/18 12:55 12/23/18 12:55 - General General appearance: Appears well, Alert - Eating food at bedside - HEENT Head: Normocephalic, Atraumatic Eyes: Normal Conjunctiva: Normal Cornea: Normal Extraocular movements intact: Yes Pupils: PERRL - Respiratory Respiratory status: No respiratory distress Chest status: Nontender Breath sounds: Normal Chest palpation: Normal - Cardiovascular Rhythm: Regular Heart sounds: Normal auscultation Murmur: No - Abdominal Inspection: Normal Distension: No distension Bowel sounds: Normal Tenderness: Nontender - Back Back: Other - Small half centimeter excoriations that patient states her bug bites that do not appear infected - Extremities General upper extremity: Normal inspection, Normal ROM General lower extremity: Other - Loss 1 bilateral lower extremity edema up to knees with no signs of erythema or infection or warmth - Neurological Neuro grossly intact: Yes Cognition: Normal Orientation: AAOx4 Course - Re-evaluation Re-evalutation: 12/23/18 16:21 All labs within normal limits are nonsignificant including normal troponin normal BNP. Patient does have bilateral leg swelling pending Doppler at this time but she states this is chronic in nature but is slightly worsened over the last 2 weeks. X-ray does not show any cardiomegaly and clear lung haque. Bites on her back do not appear infected but she states she is on Keflex from an urgent care facility. Denies any chest pain or shortness of breath this time back and shoulder are chronic in nature. 12/23/18 16:47 Negative DVT study. Discussed findings with patient. Advised to use compression stockings and to continue taking her medications as prescribed. Patient understands and agrees with plan for reevaluation with her primary care doctor in 1 week if symptoms are not improving. - Vital Signs Vital signs: Temp Pulse Resp BP Pulse Ox 98.8 F 89 20 128/75 H 96 12/23/18 12:55 12/23/18 12:55 12/23/18 12:55 12/23/18 12:55 12/23/18 12:55 - Laboratory Result Diagrams: 12/23/18 14:38 12/23/18 14:38 Laboratory results interpreted by me: 12/23/18 12/23/18 14:38 14:38 Carbon Dioxide 33 H Urine Blood SMALL H Ur Leukocyte Esterase LARGE H - EKG Interpretation by Me EKG shows normal: Sinus rhythm Rate: Normal Rhythm: NSR - Normal axis and intervals no concerning ST depressions or elevations Discharge - Discharge Clinical Impression: Peripheral edema Condition: Good Disposition: HOME, SELF-CARE Instructions: Edema, Peripheral ([facility]) Additional Instructions: Please wear your compression stockings and keep her legs elevated at night and while lying down. Please seek medical reevaluation in the next 3 to 5 days if symptoms not improving with your primary care physician or the emergency department for any other concerns. Referrals: JORDAN LINO MD [ACTIVE STAFF] - Follow up as needed
[2018-12-23] MEDS ORDERED: RINGERS SOLUTION,LACTATED 1,000 ML IV ONE (16:52)
--- NOTE | 2018-12-23 17:10 | RADIOLOGY REPORT (SQ) ---
EXAM DESCRIPTION: VENOUS BILATERAL LOWER COMPLETED DATE/TIME: 12/23/2018 4:57 pm REASON FOR STUDY: leg swelling COMPARISON: None. TECHNIQUE: Dynamic and static ambrosio scale and color images acquired of both lower extremity venous sy stems. Selected spectral images acquired with additional compression and augmentation maneuvers. Imag es stored on PACS. LIMITATIONS: None. FINDINGS: RIGHT LEG COMMON FEMORAL AND FEMORAL: Normal phasicity, compression and augmentation. No visualized echogenic m aterial on ambrosio scale. No defects on color images. POPLITEAL: Normal compression and augmentation. No visualized echogenic material on ambrosio scale. No de fects on color images. CALF VESSELS: Normal compression and augmentation. No visualized echogenic material on ambrosio scale. No defects on color image. GSV AND SSV: Normal compression. No visualized echogenic material on ambrosio scale. No defects on color images. ANY DEEP VENOUS INSUFFICIENCY: Not evaluated. ANY EVIDENCE OF POPLITEAL CYST: No. OTHER: No other significant finding. LEFT LEG COMMON FEMORAL AND FEMORAL: Normal phasicity, compression and augmentation. No visualized echogenic m aterial on ambrosio scale. No defects on color images. POPLITEAL: Normal compression and augmentation. No visualized echogenic material on ambrosio scale. No de fects on color images. CALF VESSELS: Normal compression and augmentation. No visualized echogenic material on ambrosio scale. No defects on color images. GSV AND SSV: Normal compression. No visualized echogenic material on ambrosio scale. No defects on color images. ANY DEEP VENOUS INSUFFICIENCY: Not evaluated. ANY EVIDENCE POPLITEAL CYST: No. OTHER: No other significant finding. IMPRESSION: NO EVIDENCE DVT OR SVT IN EITHER LEG. COMMENT: The findings were sent to the Radiology Results Communication Center at 17:04 on 12/23/2018 to be communicated to a licensed caregiver. TECHNICAL DOCUMENTATION: JOB ID: [id number] [employer]- All Rights Reserved Reading location - IP/workstation name: [email or web address]
[2018-12-23 17:16] VITALS: BP 137/80
--- NOTE | 2018-12-23 18:28 | EKG REPORT ---
SEVERITY:- OTHERWISE NORMAL ECG - SINUS RHYTHM RIGHT AXIS DEVIATION : Confirmed by: Rashard Haddad MD 23-Dec-2018 18:27:46
== END 2018-12-23 17:21 | disposition home or self-care (01) ==
LOC: ER 12:47
DX: R60.0 Localized edema (principal); M54.5 Low back pain; G89.29 Other chronic pain; M25.512 Pain in left shoulder; M25.522 Pain in left elbow; Z79.899 Other long term (current) drug therapy
CPT/HCPCS: 36415; 71046; 80053; 81001; 83880; 84484; 85025; 93005; 93010; 93970; 99284

== ENCOUNTER 2018-12-27 12:52 | Emergency (ER) | payer MEDICARE, MEDICAID ==
--- NOTE | 2018-12-27 13:05 | ER Document Report ---
ED Medical Screen (RME) - General Stated Complaint: SHORTNESS OF BREATH Time Seen by Provider: 12/27/18 12:59 Primary Care Provider: ALKA MCCURDY MD [Primary Care Provider] - Follow up as needed Mode of Arrival: Ambulatory Information source: Patient Notes: 53-year-old female presents today with complaints of shortness of breath with back pain complaints her hands feel like they are on fire when water touches THEM. Reports that she vomited today. Patient reports shortness of breath started yesterday. Reports she was evaluated in the emergency department Friday for bilateral leg swelling left arm pain. Patient is talking very quickly respiratory rate even unlabored no retractions. I have greeted and performed a rapid initial assessment of this patient. A comprehensive ED assessment and evaluation of the patient, analysis of test results and completion of the medical decision making process will be conducted by additional ED providers. Dictation of this chart was performed using voice recognition software; therefore, there may be some unintended grammatical errors. TRAVEL OUTSIDE OF THE [place] IN LAST 30 DAYS: No - Related Data Allergies/Adverse Reactions: acetaminophen [From Tylenol] Allergy (Verified 12/27/18 13:02) Penicillins Allergy (Verified 12/27/18 13:02) Past Medical History Neurological Medical History: Reports: Hx Migraine, Hx Seizures. Denies: Hx Cerebrovascular Accident Renal/ Medical History: Denies: Hx Peritoneal Dialysis GI Medical History: Reports: Hx Hepatitis - Hep C Musculoskeltal Medical History: Reports Hx Arthritis, Reports Hx Fibromyalgia, Reports Hx Musculoskeletal Deformity, Reports Hx Musculoskeletal Trauma Skin Medical History: Reports Hx MRSA Psychiatric Medical History: Reports: Hx Bipolar Disorder Traumatic Medical History: Reports: Hx Fractures Infectious Medical History: Reports: Hx Hepatitis - Hep C, Hx MRSA Past Surgical History: Reports: Hx Breast Surgery - BREAST REDUCTION, Hx Tonsillectomy - Immunizations Hx Diphtheria, Pertussis, Tetanus Vaccination: No Doctor's Discharge - Discharge Referrals: ALKA MCCURDY MD [Primary Care Provider] - Follow up as needed
[2018-12-27 14:15] LABS: APPEARANCE,URINE CLOUDY; BILIRUBIN,URINE NEGATIVE (NEGATIVE); COLOR,URINE AMBER; GLUCOSE, URINE NEGATIVE (NEGATIVE); KETONES,URINE NEGATIVE (NEGATIVE); LEUKOCYTE ESTERASE,URINE NEGATIVE (NEGATIVE); NITRITE,URINE NEGATIVE (NEGATIVE); PROTEIN,URINE NEGATIVE (NEGATIVE); URINE SPECIFIC GRAVITY 1.019; UROBILINOGEN,URINE NEGATIVE mg/dL (<2.0)
[2018-12-27 14:15] LABS: ALBUMIN 3.6 g/dL (3.5-5.0); ALKALINE PHOSPHATASE 81 U/L (38-126); ANION GAP 11 (5-19); ASPARTATE AMINO TRANSFERASE 39 U/L (14-36); BILIRUBIN,DIRECT 0.2 mg/dL (0.0-0.4); BILIRUBIN,TOTAL 0.6 mg/dL (0.2-1.3); BLOOD UREA NITROGEN 35 mg/dL (7-20); CARBON DIOXIDE 24 mmol/L (22-30); CHLORIDE 105 mmol/L (98-107); CREATINE KINASE 290 U/L (30-135); GLUCOSE 104 mg/dL (75-110); POTASSIUM 3.9 mmol/L (3.6-5.0); TOTAL PROTEIN 6.5 g/dL (6.3-8.2)
--- NOTE | 2018-12-27 14:16 | RADIOLOGY REPORT (SQ) ---
EXAM DESCRIPTION: CHEST 2 VIEWS COMPLETED DATE/TIME: 12/27/2018 2:06 pm REASON FOR STUDY: SOB COMPARISON: 12/23/2018 EXAM PARAMETERS: NUMBER OF VIEWS: two views TECHNIQUE: Digital Frontal and Lateral radiographic views of the chest acquired. RADIATION DOSE: NA LIMITATIONS: none FINDINGS: LUNGS AND PLEURA: No opacities, masses or pneumothorax. No pleural effusion. MEDIASTINUM AND HILAR STRUCTURES: No masses or contour abnormalities. HEART AND VASCULAR STRUCTURES: Heart normal size. No evidence for failure. BONES: No acute findings. HARDWARE: None in the chest. OTHER: No other significant finding. IMPRESSION: NO ACUTE RADIOGRAPHIC FINDING IN THE CHEST. TECHNICAL DOCUMENTATION: JOB ID: [id number] [employer]- All Rights Reserved Reading location - IP/workstation name: [email or web address]
[2018-12-27] MEDS ORDERED: NORMAL SALINE 500 ML IV ONE (14:32)
[2018-12-27] MEDS ORDERED: TRAMADOL HCL 50 MG TABLET PO ONE (14:32)
--- NOTE | 2018-12-27 14:38 | ER Document Report ---
ED General - General Chief Complaint: Shortness Of Breath Stated Complaint: SHORTNESS OF BREATH Time Seen by Provider: 12/27/18 12:59 Primary Care Provider: ALKA MCCURDY MD [Primary Care Provider] - Follow up as needed Mode of Arrival: Ambulatory TRAVEL OUTSIDE OF THE [place] IN LAST 30 DAYS: No - HPI Notes: This is a 53-year-old female who presents today with multiple complaints. Patient complains of pain all over her body for the past several days. She also complains of a gradual onset frontal headache, associated with blurred vision and photophobia. She also states has had some slight cough and trouble breathing. Patient states that her doctor told her she had fibromyalgia. Patient denies any substernal chest pressure. She denies any vomiting or diarrhea. Patient notes that she was here recently with similar presentations. She states she felt better but now symptoms have recurred. She denies any fever or chills. Her frontal headache is throbbing, gradual onset, and worse with light exposure. She denies any neck pain or stiffness. Patient also notes that she has been feeling very tired lately. She says she has been sleeping a lot lately. States he fell asleep at home in the kitchen a few days ago, and fell. Patient states that she thinks that she was bitten by either ticks or bedbugs at her friend's house. [place] She states that that is when his symptoms started. - Related Data Allergies/Adverse Reactions: acetaminophen [From Tylenol] Allergy (Verified 12/27/18 13:02) Penicillins Allergy (Verified 12/27/18 13:02) Past Medical History - General Information source: Patient - Social History Smoking Status: Current Every Day Smoker Frequency of alcohol use: None Drug Abuse: None Family History: Reviewed & Not Pertinent Neurological Medical History: Reports: Hx Migraine, Hx Seizures. Denies: Hx Cerebrovascular Accident Renal/ Medical History: Denies: Hx Peritoneal Dialysis GI Medical History: Reports: Hx Hepatitis - Hep C Musculoskeletal Medical History: Reports Hx Arthritis, Reports Hx Fibromyalgia, Reports Hx Musculoskeletal Deformity, Reports Hx Musculoskeletal Trauma Skin Medical History: Reports Hx MRSA Psychiatric Medical History: Reports: Hx Bipolar Disorder Traumatic Medical History: Reports: Hx Fractures Infectious Medical History: Reports: Hx Hepatitis - Hep C, Hx MRSA Past Surgical History: Reports: Hx Breast Surgery - BREAST REDUCTION, Hx Tonsillectomy - Immunizations Hx Diphtheria, Pertussis, Tetanus Vaccination: No Review of Systems - Review of Systems Constitutional: Malaise. denies: Fever Cardiovascular: denies: Chest pain, Palpitations, Heart racing Respiratory: Cough, Short of breath Gastrointestinal: denies: Abdominal pain, Diarrhea, Nausea, Vomiting Musculoskeletal: Back pain, Joint pain, Muscle pain. denies: Neck pain Neurological/Psychological: Headaches. denies: Confusion, Weakness, Numbness -: Yes All other systems reviewed and negative Physical Exam - Vital signs Vitals: Temp Pulse Resp BP Pulse Ox 98.0 F 107 H 16 110/69 96 12/27/18 13:02 12/27/18 13:02 12/27/18 13:02 12/27/18 13:02 12/27/18 13:02 - General General appearance: Appears well, Alert - HEENT Head: Normocephalic, Atraumatic Eyes: Normal Pupils: PERRL - Respiratory Respiratory status: No respiratory distress Chest status: Nontender Breath sounds: Normal Chest palpation: Normal - Cardiovascular Rhythm: Regular Heart sounds: Normal auscultation Murmur: No - Abdominal Inspection: Normal Distension: No distension Bowel sounds: Normal Tenderness: Nontender Organomegaly: No organomegaly - Back Back: Normal - Patient has what appears to be an insect bite buck in the back. She states she is taking antibiotics for it., Nontender - Extremities General upper extremity: Normal inspection, Nontender, Normal color, Normal ROM, Normal temperature General lower extremity: Normal inspection, Nontender, Normal color, Normal ROM, Normal temperature. No: Debra's sign - Neurological Neuro grossly intact: Yes Cognition: Normal Orientation: AAOx4 [place] Coma Scale Eye Opening: Spontaneous [place] Coma Scale Verbal: Oriented [place] Coma Scale Motor: Obeys Commands Hodan Coma Scale Total: 15 Speech: Normal Motor strength normal: LUE, RUE, LLE, RLE Sensory: Normal Notes: There is no motor, sensory or cerebellar deficits. Nonfocal neurologic exam. GCS is 15. NIH stroke score is 0. - Skin Skin Temperature: Warm - Patient has a rash on her back is consistent with insect bite. No fluctuance to suggest drainable abscess. Patient states she is on antibiotics for it. Skin Moisture: Dry Skin Color: Normal Course - Re-evaluation Re-evalutation: 12/27/18 14:41 Differential diagnosis includes generalized malaise versus migraine versus fibromyalgia versus viral syndrome versus pneumonia versus bronchitis versus electrolyte abnormalities versus [place] spotted fever. Will check basic labs. Will get head CT. There is no clinical suspicion for acute coronary syndrome or CVA. EKG shows normal sinus rhythm at 91 bpm. Right axis deviation. No acute injury pattern. 12/27/18 16:23 Patient reevaluated. She feels better. Labs reviewed. Given leukocytosis, history of body aches and slight headaches, question tick bite/exposure, I will cover her with doxycycline for possible [place] spotted fever. We will give her fluid bolus given her slightly elevated creatinine. 12/27/18 19:08 Patient reevaluated. Patient feels much better. Labs and imaging reviewed and discussed. Follow-up discussed with patient. She is stable for discharge. - Vital Signs Vital signs: Temp Pulse Resp BP Pulse Ox 98.0 F 107 H 17 115/77 100 12/27/18 13:02 12/27/18 13:02 12/27/18 17:01 12/27/18 17:01 12/27/18 16:47 - Laboratory Result Diagrams: 12/27/18 15:29 12/27/18 13:23 Laboratory results interpreted by me: 12/27/18 12/27/18 12/27/18 13:23 13:54 15:29 WBC 19.7 H Hgb 11.6 L Hct 35.5 L Plt Count 145 L Lymph % (Auto) 9.3 L Absolute Neuts (auto) 16.0 H Absolute Monos (auto) 1.8 H Seg Neutrophils % 80.9 H BUN 35 H Creatinine 1.68 H Est GFR ( Amer) 38 L Est GFR (MDRD) Non-Af 32 L AST 39 H Creatine Kinase 290 H Urine Blood SMALL H Discharge - Discharge Clinical Impression: Malaise and fatigue, RMSF ([place] spotted fever), Generalized headaches Tick bite Qualifiers: Encounter type: initial encounter Qualified Code(s): W57.XXXA - Bitten or stung by nonvenomous insect and other nonvenomous arthropods, initial encounter URI (upper respiratory infection) Qualifiers: URI type: unspecified URI Qualified Code(s): J06.9 - Acute upper respiratory infection, unspecified Condition: Stable Disposition: HOME, SELF-CARE Instructions: Upper Respiratory Illness ([facility]), Tick Bites ([facility]), Headache ([facility]) Additional Instructions: Return if worse or concerns. Prescriptions: Tramadol HCl [Ultram 50 mg Tablet] 50 mg PO Q4HP PRN #12 tab PRN Reason: Doxycycline Monohydrate 100 mg PO BID #20 capsule Referrals: ALKA MCCURDY MD [Primary Care Provider] - Follow up as needed
--- NOTE | 2018-12-27 15:23 | RADIOLOGY REPORT (SQ) ---
EXAM DESCRIPTION: CT HEAD WITHOUT COMPLETED DATE/TIME: 12/27/2018 3:12 pm REASON FOR STUDY: Headaches, blurred vision COMPARISON: CT brain 07/18/2016 TECHNIQUE: Axial images acquired through the brain without intravenous contrast. Images reviewed wi th bone, brain and subdural windows. Additional sagittal and coronal reconstructions were generated. Images stored on PACS. All CT scanners at this facility use dose modulation, iterative reconstruction, and/or weight based d osing when appropriate to reduce radiation dose to as low as reasonably achievable (ALARA). [facility]: Dose Right [facility]: CareDose [facility]: Dose Right [facility]: Teradose 4D [facility]: Globe Icons Interactive RADIATION DOSE: CT Rad equipment meets quality standard of care and radiation dose reduction techniq ues were employed. CTDIvol: 53.2 mGy. DLP: 911 mGy-cm. mGy. LIMITATIONS: None. FINDINGS: VENTRICLES: Normal size and contour. CEREBRUM: No masses. No hemorrhage. No midline shift. No evidence for acute infarction. Normal gra y/white matter differentiation. No areas of low density in the white matter. CEREBELLUM: No masses. No hemorrhage. No alteration of density. No evidence for acute infarction. EXTRAAXIAL SPACES: No fluid collections. No masses. ORBITS AND GLOBE: No intra- or extraconal masses. Normal contour of globe without masses. CALVARIUM: No fracture. PARANASAL SINUSES: No fluid or mucosal thickening. SOFT TISSUES: No mass or hematoma. OTHER: No other significant finding. IMPRESSION: NORMAL BRAIN CT WITHOUT CONTRAST. EVIDENCE OF ACUTE STROKE: NO. COMMENT: Quality ID # [id number]: Final reports with documentation of one or more dose reduction techniques (e.g., Automated exposure control, adjustment of the mA and/or kV according to patient size, use of iterative reconstruction technique) TECHNICAL DOCUMENTATION: JOB ID: [id number] [employer]- All Rights Reserved Reading location - IP/workstation name: [email or web address]
[2018-12-27 15:41] LABS: ABSOLUTE EOSINOPHILS # (AUTO) 0.1 10^3/uL (0.0-0.6); ABSOLUTE LYMPHOCYTES (AUTO) 1.8 10^3/uL (0.5-4.7); ABSOLUTE MONOCYTES (AUTO) 1.8 10^3/uL (0.1-1.4); BASOPHILS % (AUTO) 0.2 % (0-2); EOSINOPHILS % (AUTO) 0.7 % (0-6); HEMATOCRIT 35.5 % (36.0-47.0); HEMOGLOBIN 11.6 g/dL (12.0-15.5); LYMPHOCYTES % (AUTO) 9.3 % (13-45); MEAN CORPUSCULAR HEMOGLOBIN 30.4 pg (27.0-33.4); MEAN CORPUSCULAR HGB CONC 32.8 g/dL (32.0-36.0); MEAN CORPUSCULAR VOLUME 93 fl (80-97); MONOCYTES % (AUTO) 8.9 % (3-13); PLATELET COUNT 145 10^3/uL (150-450); RED BLOOD COUNT 3.83 10^6/uL (3.72-5.28); RED CELL DISTRIBUTION WIDTH 13.3 % (11.5-14.0); SEGMENTED NEUTROPHILS % (AUTO) 80.9 % (42-78); TOTAL CELLS COUNTED % (AUTO) 100 %; WHITE BLOOD COUNT 19.7 10^3/uL (4.0-10.5)
[2018-12-27] MEDS ORDERED: NORMAL SALINE 1000 ML 1,000 ML IV ONE (16:24)
--- NOTE | 2018-12-27 17:42 | EKG REPORT ---
SEVERITY:- OTHERWISE NORMAL ECG - SINUS RHYTHM BORDERLINE RIGHT AXIS DEVIATION : Confirmed by: Rashard Haddad MD 27-Dec-2018 17:40:54
[2018-12-27] MEDS ORDERED: DOXYCYCLINE HYCLATE 100 MG TABLET PO ONE (19:07)
[2018-12-27 19:31] VITALS: BP 110/75
== END 2018-12-27 19:30 | disposition home or self-care (01) ==
LOC: ER 12:52
DX: A77.0 Spotted fever due to Rickettsia rickettsii (principal); T14.8XXA Other injury of unspecified body region, initial encounter; W57.XXXA Bitten or stung by nonvenomous insect and other nonvenomous arthropods, initial encounter; J06.9 Acute upper respiratory infection, unspecified; R51 Headache; H53.149 Visual discomfort, unspecified; H53.8 Other visual disturbances; R53.81 Other malaise; R53.83 Other fatigue; R05 Cough; R06.02 Shortness of breath; M54.9 Dorsalgia, unspecified; R21 Rash and other nonspecific skin eruption; M25.50 Pain in unspecified joint; M79.10 Myalgia, unspecified site; F17.200 Nicotine dependence, unspecified, uncomplicated; Z86.69 Personal history of other diseases of the nervous system and sense organs; Z88.8 Allergy status to other drugs, medicaments and biological substances; Z88.0 Allergy status to penicillin; D72.829 Elevated white blood cell count, unspecified
CPT/HCPCS: 93005; 99285; 96360; 36415; 82550; 85025; 80053; 81001; 84484; 71046; 70450; 93010; A9270 ×2; J7030; J7040

== ENCOUNTER 2019-05-24 11:20 | Emergency (ER) | payer MEDICARE, MEDICAID ==
[2019-05-24 11:33] VITALS: BP 133/79
[2019-05-24] MEDS ORDERED: DIPHENHYDRAMINE HCL 50 MG CAPSULE PO ONE (11:58)
[2019-05-24] MEDS ORDERED: KETOROLAC TROMETHAMINE 10 MG TABLET PO ONE (11:58)
[2019-05-24] MEDS ORDERED: METOCLOPRAMIDE HCL 10 MG TABLET PO ONE (11:58)
--- NOTE | 2019-05-24 11:59 | ER Document Report ---
ED Medical Screen (RME) - General TRAVEL OUTSIDE OF THE [place] IN LAST 30 DAYS: No <VLAD HEADLEY - Last Filed: 05/24/19 11:59> <PERCY KEMP P - Last Filed: 05/24/19 15:29> - General Chief Complaint: Headache Stated Complaint: HEADACHE/RASH,BACK PAIN Time Seen by Provider: 05/24/19 11:47 Primary Care Provider: ALKA MCCURDY MD [Primary Care Provider] - Follow up as needed - Related Data Allergies/Adverse Reactions: acetaminophen [From Tylenol] Allergy (Verified 05/24/19 11:45) Penicillins Allergy (Verified 05/24/19 11:45) Past Medical History Neurological Medical History: Reports: Hx Migraine, Hx Seizures. Denies: Hx Cerebrovascular Accident Renal/ Medical History: Denies: Hx Peritoneal Dialysis GI Medical History: Reports: Hx Hepatitis - Hep C Musculoskeltal Medical History: Reports Hx Arthritis, Reports Hx Fibromyalgia, Reports Hx Musculoskeletal Deformity, Reports Hx Musculoskeletal Trauma Skin Medical History: Reports Hx MRSA Psychiatric Medical History: Reports: Hx Bipolar Disorder Traumatic Medical History: Reports: Hx Fractures Infectious Medical History: Reports: Hx Hepatitis - Hep C, Hx MRSA Past Surgical History: Reports: Hx Breast Surgery - BREAST REDUCTION, Hx Tonsillectomy - Immunizations Hx Diphtheria, Pertussis, Tetanus Vaccination: No <VLAD HEADLEY - Last Filed: 05/24/19 11:59> Physical Exam - Vital signs Vitals: Temp Pulse Resp BP Pulse Ox 98.4 F 92 17 133/79 H 98 05/24/19 11:31 05/24/19 11:31 05/24/19 11:31 05/24/19 11:31 05/24/19 11:31 Course - Laboratory Result Diagrams: 05/24/19 14:24 05/24/19 14:24 <PERCY KEMP P - Last Filed: 05/24/19 15:29> - Vital Signs Vital signs: Temp Pulse Resp BP Pulse Ox 98.4 F 92 17 133/79 H 98 05/24/19 11:31 05/24/19 11:31 05/24/19 11:31 05/24/19 11:31 05/24/19 11:31 - Laboratory Laboratory results interpreted by me: 02/17/20 14:24 RBC 3.60 L Hgb 10.8 L Hct 32.3 L Doctor's Discharge <VLAD HEADLEY - Last Filed: 05/24/19 11:59> <PERCY KEMP - Last Filed: 05/24/19 15:29> - Discharge Clinical Impression: Fibromyalgia Condition: Good Instructions: Headache ([facility]), Antinausea Medication ([facility]), Reglan ([facility]) Additional Instructions: Take medicine as directed. Rest. Fluids. Please return here for any problems or any concerns. Referrals: ALKA MCCURDY MD [Primary Care Provider] - Follow up as needed
[2019-05-24 14:45] LABS: ABSOLUTE EOSINOPHILS # (AUTO) 0.1 10^3/uL (0.0-0.6); ABSOLUTE LYMPHOCYTES (AUTO) 1.5 10^3/uL (0.5-4.7); ABSOLUTE MONOCYTES (AUTO) 0.5 10^3/uL (0.1-1.4); ABSOLUTE NEUT (AUTO) 4.4 10^3/uL (1.7-8.2); BASOPHILS % (AUTO) 0.6 % (0-2); EOSINOPHILS % (AUTO) 1.3 % (0-6); HEMATOCRIT 32.3 % (36.0-47.0); HEMOGLOBIN 10.8 g/dL (12.0-15.5); LYMPHOCYTES % (AUTO) 23.3 % (13-45); MEAN CORPUSCULAR HGB CONC 33.5 g/dL (32.0-36.0); MEAN CORPUSCULAR VOLUME 90 fl (80-97); MONOCYTES % (AUTO) 8.2 % (3-13); PLATELET COUNT 214 10^3/uL (150-450); RED CELL DISTRIBUTION WIDTH 13.1 % (11.5-14.0); SEGMENTED NEUTROPHILS % (AUTO) 66.6 % (42-78); TOTAL CELLS COUNTED % (AUTO) 100 %; WHITE BLOOD COUNT 6.5 10^3/uL (4.0-10.5)
[2019-05-24 14:50] LABS: ALBUMIN 4.1 g/dL (3.5-5.0); ALKALINE PHOSPHATASE 69 U/L (38-126); ANION GAP 7 (5-19); ASPARTATE AMINO TRANSFERASE 28 U/L (14-36); BILIRUBIN,DIRECT 0.1 mg/dL (0.0-0.4); BILIRUBIN,TOTAL 0.4 mg/dL (0.2-1.3); BLOOD UREA NITROGEN 13 mg/dL (7-20); CALCIUM 9.6 mg/dL (8.4-10.2); CARBON DIOXIDE 29 mmol/L (22-30); CHLORIDE 103 mmol/L (98-107); GLUCOSE 90 mg/dL (75-110); POTASSIUM 4.8 mmol/L (3.6-5.0); TOTAL PROTEIN 7.5 g/dL (6.3-8.2)
[2019-05-24 15:33] LABS: APPEARANCE,URINE CLEAR; BILIRUBIN,URINE NEGATIVE (NEGATIVE); COLOR,URINE YELLOW; GLUCOSE, URINE NEGATIVE (NEGATIVE); KETONES,URINE NEGATIVE (NEGATIVE); PROTEIN,URINE NEGATIVE (NEGATIVE); UROBILINOGEN,URINE NEGATIVE mg/dL (<2.0)
--- NOTE | 2019-05-26 14:42 | ER Document Report ---
Entered by CARI SHARMA SCRIBE 05/24/19 1536 Acting as scribe for:PERCY KEMP DO ED General - General Chief Complaint: Skin Sore(s) Stated Complaint: HEADACHE/RASH,BACK PAIN Time Seen by Provider: 05/24/19 11:47 Primary Care Provider: ALKA MCCURDY MD [Primary Care Provider] - Follow up as needed Mode of Arrival: Ambulatory Information source: Patient Notes: This 53 year old female patient presents to the emergency department today with complaints of back pain and "lesions" that she describes as bed bug bites. Patient goes swiftly from one complaint to another including bugs, pulling out her left eyebrow, and back pain. TRAVEL OUTSIDE OF THE [place] IN LAST 30 DAYS: No - Related Data Allergies/Adverse Reactions: acetaminophen [From Tylenol] Allergy (Verified 05/24/19 11:45) Penicillins Allergy (Verified 05/24/19 11:45) Home Medications: realo/y[address] rd Past Medical History - General Information source: Patient - Social History Smoking Status: Never Smoker Cigarette use (# per day): No Chew tobacco use (# tins/day): No Frequency of alcohol use: Occasional Drug Abuse: None Lives with: Family Family History: Reviewed & Not Pertinent Patient has suicidal ideation: No Patient has homicidal ideation: No Neurological Medical History: Reports: Hx Migraine, Hx Seizures. Denies: Hx Cerebrovascular Accident Renal/ Medical History: Denies: Hx Peritoneal Dialysis GI Medical History: Reports: Hx Hepatitis - Hep C Musculoskeletal Medical History: Reports Hx Arthritis, Reports Hx Fibromyalgia, Reports Hx Musculoskeletal Deformity, Reports Hx Musculoskeletal Trauma Skin Medical History: Reports Hx MRSA Psychiatric Medical History: Reports: Hx Bipolar Disorder Traumatic Medical History: Reports: Hx Fractures Infectious Medical History: Reports: Hx Hepatitis - Hep C, Hx MRSA Past Surgical History: Reports: Hx Breast Surgery - BREAST REDUCTION, Hx Tonsillectomy - Immunizations Hx Diphtheria, Pertussis, Tetanus Vaccination: No Review of Systems - Review of Systems Constitutional: No symptoms reported EENT: No symptoms reported Cardiovascular: No symptoms reported Respiratory: No symptoms reported Gastrointestinal: No symptoms reported Genitourinary: No symptoms reported Female Genitourinary: No symptoms reported Musculoskeletal: No symptoms reported Skin: See HPI, Lesions Hematologic/Lymphatic: No symptoms reported Neurological/Psychological: No symptoms reported -: Yes All other systems reviewed and negative Physical Exam - Vital signs Vitals: Temp Pulse Resp BP Pulse Ox 98.4 F 92 17 133/79 H 98 05/24/19 11:31 05/24/19 11:31 05/24/19 11:31 05/24/19 11:31 05/24/19 11:31 - Notes Notes: Physical Exam: General: Alert. HEENT: Normocephalic. Atraumatic. PERRL. Extraocular movements intact. Oropharynx clear. Neck: Supple. Non-tender. Respiratory: No respiratory distress. Clear and equal breath sounds bilaterally. Cardiovascular: Regular rate and rhythm. Abdominal: Normal Inspection. Non-tender. No distension. Normal Bowel Sounds. Back: No gross abnormalities. Extremities: Moves all four extremities. Upper extremities: Normal inspection. Normal ROM. Lower extremities: Normal inspection. No edema. Normal ROM. Neurological: Normal cognition. AAOx4. Normal speech. Psychological: Bizarre affect. Flight of ideas. Skin: Warm. Dry. Normal color. - Genitourinary External exam: Other - There is a less than 1 cm area of induration to the right labia Course - Vital Signs Vital signs: Temp Pulse Resp BP Pulse Ox 98.4 F 92 17 133/79 H 98 05/24/19 11:31 05/24/19 11:31 05/24/19 11:31 05/24/19 11:31 05/24/19 11:31 - Laboratory Result Diagrams: 05/24/19 14:24 05/24/19 14:24 Laboratory results interpreted by me: 05/24/19 05/24/19 14:24 15:11 RBC 3.60 L Hgb 10.8 L Hct 32.3 L Leukocyte Esterase Rfl TRACE H Discharge - Discharge Clinical Impression: Fibromyalgia Condition: Good Disposition: HOME, SELF-CARE Instructions: Antinausea Medication ([facility]), Headache ([facility]), Reglan ([facility]) Additional Instructions: Take medicine as directed. Rest. Fluids. Please return here for any problems or any concerns. Prescriptions: Sulfamethoxazole/Trimethoprim [Bactrim 400-80 mg Tablet] 1 each PO BID #20 tablet Referrals: ALKA MCCURDY MD [Primary Care Provider] - Follow up as needed I personally performed the services described in the documentation, reviewed and edited the documentation which was dictated to the scribe in my presence, and it accurately records my words and actions.
== END 2019-05-24 16:11 | disposition home or self-care (01) ==
LOC: ER 11:20
DX: M79.7 Fibromyalgia (principal); L98.9 Disorder of the skin and subcutaneous tissue, unspecified; Z88.8 Allergy status to other drugs, medicaments and biological substances; Z88.0 Allergy status to penicillin
CPT/HCPCS: 99283; 36415; 87086; 85025; 80053; 81001; A9270 ×3; J3490

== ENCOUNTER 2019-06-01 14:59 | Emergency (ER) | payer MEDICARE, MEDICAID ==
[2019-06-01] MEDS ORDERED: ONDANSETRON 4 MG TAB.RAPDIS PO ONE (16:02)
--- NOTE | 2019-06-01 16:05 | ER Document Report ---
ED Medical Screen (RME) - General Chief Complaint: Dizziness Stated Complaint: DIZZINESS Time Seen by Provider: 06/01/19 15:51 Primary Care Provider: ALKA MCCURDY MD [Primary Care Provider] - Follow up as needed Mode of Arrival: Wheelchair Information source: Patient Notes: 53-year-old female presents to ED for complaint of headache dizziness head spinning nausea. She states she felt like she had to go to the bathroom so she went to the bathroom her head started spinning she felt like she was going to fall over into the bathroom floor. She states she got up she took some lisinopril because she is supposed to take that for her blood pressure. She states this all started at 9 [id number] this afternoon she got the stomach cramps again started to go to the bathroom she had hot flashes dizziness spinning in her head and felt like she was going to fall out again. Patient is alert oriented respirations regular nonlabored speaking in full sentences. She states she does go to pain management when she has the money to go she also sees bam Moctezuma at [facility]. I have greeted and performed a rapid initial assessment of this patient. A comprehensive ED assessment and evaluation of the patient, analysis of test results and completion of medical decision making process will be conducted by an additional ED providers. TRAVEL OUTSIDE OF THE [place] IN LAST 30 DAYS: No - Related Data Allergies/Adverse Reactions: acetaminophen [From Tylenol] Allergy (Verified 05/24/19 11:45) Penicillins Allergy (Verified 05/24/19 11:45) Past Medical History Neurological Medical History: Reports: Hx Migraine, Hx Seizures. Denies: Hx C erebrovascular Accident Renal/ Medical History: Denies: Hx Peritoneal Dialysis GI Medical History: Reports: Hx Hepatitis - Hep C Musculoskeltal Medical History: Reports Hx Arthritis, Reports Hx Fibromyalgia, Reports Hx Musculoskeletal Deformity, Reports Hx Musculoskeletal Trauma Skin Medical History: Reports Hx MRSA Psychiatric Medical History: Reports: Hx Bipolar Disorder Traumatic Medical History: Reports: Hx Fractures Infectious Medical History: Reports: Hx Hepatitis - Hep C, Hx MRSA Past Surgical History: Reports: Hx Breast Surgery - BREAST REDUCTION, Hx Tonsillectomy - Immunizations Hx Diphtheria, Pertussis, Tetanus Vaccination: No Physical Exam - Vital signs Vitals: Temp Pulse Resp BP Pulse Ox 98 F 84 18 139/87 H 100 06/01/19 15:10 06/01/19 15:10 06/01/19 15:10 06/01/19 15:10 06/01/19 15:10 Course - Vital Signs Vital signs: Temp Pulse Resp BP Pulse Ox 98 F 84 18 139/87 H 100 06/01/19 15:10 06/01/19 15:10 06/01/19 15:10 06/01/19 15:10 06/01/19 15:10 Doctor's Discharge - Discharge Referrals: ALKA MCCURDY MD [Primary Care Provider] - Follow up as needed
[2019-06-01] MEDS ORDERED: IBUPROFEN 600 MG TABLET PO ONE (16:06)
[2019-06-01 17:17] LABS: ABSOLUTE EOSINOPHILS # (AUTO) 0.1 10^3/uL (0.0-0.6); ABSOLUTE LYMPHOCYTES (AUTO) 1.9 10^3/uL (0.5-4.7); ABSOLUTE MONOCYTES (AUTO) 0.5 10^3/uL (0.1-1.4); BASOPHILS % (AUTO) 0.7 % (0-2); EOSINOPHILS % (AUTO) 1.5 % (0-6); HEMOGLOBIN 14.7 g/dL (12.0-15.5); LYMPHOCYTES % (AUTO) 28.4 % (13-45); MEAN CORPUSCULAR HEMOGLOBIN 29.7 pg (27.0-33.4); MEAN CORPUSCULAR HGB CONC 33.3 g/dL (32.0-36.0); MEAN CORPUSCULAR VOLUME 89 fl (80-97); MONOCYTES % (AUTO) 7.7 % (3-13); PLATELET COUNT 294 10^3/uL (150-450); RED BLOOD COUNT 4.93 10^6/uL (3.72-5.28); RED CELL DISTRIBUTION WIDTH 13.3 % (11.5-14.0); SEGMENTED NEUTROPHILS % (AUTO) 61.7 % (42-78); TOTAL CELLS COUNTED % (AUTO) 100 %; WHITE BLOOD COUNT 6.6 10^3/uL (4.0-10.5)
[2019-06-01 17:38] LABS: ALBUMIN 4.3 g/dL (3.5-5.0); ALKALINE PHOSPHATASE 97 U/L (38-126); ANION GAP 7 (5-19); ASPARTATE AMINO TRANSFERASE 24 U/L (14-36); BILIRUBIN,TOTAL 0.2 mg/dL (0.2-1.3); BLOOD UREA NITROGEN 15 mg/dL (7-20); CALCIUM 9.9 mg/dL (8.4-10.2); CARBON DIOXIDE 31 mmol/L (22-30); CHLORIDE 104 mmol/L (98-107); GLUCOSE 139 mg/dL (75-110); POTASSIUM 4.6 mmol/L (3.6-5.0); TOTAL PROTEIN 7.6 g/dL (6.3-8.2)
[2019-06-01 18:49] LABS: APPEARANCE,URINE CLEAR; BILIRUBIN,URINE NEGATIVE (NEGATIVE); COLOR,URINE YELLOW; GLUCOSE, URINE NEGATIVE (NEGATIVE); KETONES,URINE NEGATIVE (NEGATIVE); PROTEIN,URINE NEGATIVE (NEGATIVE); URINE SPECIFIC GRAVITY 1.015; UROBILINOGEN,URINE NEGATIVE mg/dL (<2.0)
--- NOTE | 2019-06-01 18:53 | ER Document Report ---
ED General - General Chief Complaint: Dizziness Stated Complaint: DIZZINESS Time Seen by Provider: 06/01/19 15:51 Primary Care Provider: ALKA MCCURDY MD [ACTIVE STAFF] - Follow up as needed ANNIE PAN MD [ACTIVE STAFF] - Follow up as needed Mode of Arrival: Wheelchair Information source: Patient TRAVEL OUTSIDE OF THE [place] IN LAST 30 DAYS: No - HPI Onset: This morning - but she has had off and on dizzy spells for months Onset/Duration: Sudden Quality of pain: No pain Severity: Moderate Associated symptoms: Nausea, Vomiting Exacerbated by: Other - head movements Relieved by: Remaining still Similar symptoms previously: Yes - several times in the past Recently seen / treated by doctor: Yes - [place] seen in this ER on 05/24/19 for skin rash and headaches Notes: 53 year old female with a history of Migraines, Hep C, Bipolar, Breast Cancer here for an episode of dizziness like the room was spinning and nausea that lasted about 15 min. The patient says she felt like she may pass out but she never did. The patient says she has had mild dizzy spells like this in the past but she has never had one as bad as she did today. The patient denies fevers, chills, sweats, chest pain, headaches. The patient denies recent ringing in her ears. The patient has many other medical complaints such as a chronic skin condition, chronic eye floaters, chronic pain. - Related Data Allergies/Adverse Reactions: acetaminophen [From Tylenol] Allergy (Verified 05/24/19 11:45) Penicillins Allergy (Verified 05/24/19 11:45) Past Medical History - General Information source: Patient - Social History Smoking Status: Former Smoker Frequency of alcohol use: None Drug Abuse: None Lives with: Other - patient has roommates in a [place]iler Family History: Reviewed & Not Pertinent Patient has suicidal ideation: No Patient has homicidal ideation: No Neurological Medical History: Reports: Hx Migraine, Hx Seizures. Denies: Hx Cerebrovascular Accident Renal/ Medical History: Denies: Hx Peritoneal Dialysis GI Medical History: Reports: Hx Hepatitis - Hep C Musculoskeletal Medical History: Reports Hx Arthritis, Reports Hx Fibromyalgia, Reports Hx Musculoskeletal Deformity, Reports Hx Musculoskeletal Trauma Skin Medical History: Reports Hx MRSA Psychiatric Medical History: Reports: Hx Bipolar Disorder Traumatic Medical History: Reports: Hx Fractures Infectious Medical History: Reports: Hx Hepatitis - Hep C, Hx MRSA Past Surgical History: Reports: Hx Breast Surgery - BREAST REDUCTION, Hx Tonsillectomy - Immunizations Hx Diphtheria, Pertussis, Tetanus Vaccination: No Review of Systems - Review of Systems Constitutional: No symptoms reported EENT: No symptoms reported Cardiovascular: Lightheaded, Other - pre-syncope Respiratory: No symptoms reported Gastrointestinal: Nausea Genitourinary: No symptoms reported Female Genitourinary: No symptoms reported Musculoskeletal: No symptoms reported Skin: Lesions - red raised areas throughout skin Hematologic/Lymphatic: No symptoms reported Neurological/Psychological: Other - Dizziness -: Yes All other systems reviewed and negative Physical Exam - Vital signs Vitals: Temp Pulse Resp BP Pulse Ox 98 F 84 18 139/87 H 100 06/01/19 15:10 06/01/19 15:10 06/01/19 15:10 06/01/19 15:10 06/01/19 15:10 - Notes Notes: GENERAL: Well-appearing, well-nourished and in no acute distress. HEAD: Atraumatic, normocephalic. EYES: Pupils equal round and reactive to light, extraocular movements intact, sclera anicteric, conjunctiva are normal. ENT: Left TM with cerumen impaction. Right TM Normal. nares patent, oropharynx clear without exudates. Moist mucous membranes. NECK: Normal range of motion, supple without lymphadenopathy or JVD. LUNGS: Breath sounds clear to auscultation bilaterally and equal. No wheezes rales or rhonchi. HEART: Regular rate and rhythm without murmurs, rubs or gallops. ABDOMEN: Soft, nontender, normoactive bowel sounds. No guarding, no rebound. No masses appreciated. EXTREMITIES: Normal range of motion, no pitting or edema. No clubbing or cyanosis. NEUROLOGICAL: Cranial nerves II through XII grossly intact. Normal speech, normal gait. PSYCH: Normal mood, normal affect. SKIN: Skin lesions noted diffusely which do not appear acutely infected. Warm, Dry, normal turgor, no rashes noted. Course - Re-evaluation Re-evalutation: 06/01/19 20:31 The patient has been having some dizzy spells. She describes what sounds like v ertigo today. On physical exam she had a large left sided cerumen impaction. I was unable to removed the impaction with a curette but nursing staff was able to irrigate the canal clear. Apparently there was the tip of a Q tip in the canal along with the cerumen impaction. The patient very well could have had her dizzy spell from the impaction. Patient told to follow up with a PCP. Will hold on [facility] lizine for now given the impaction. - Vital Signs Vital signs: Temp Pulse Resp BP Pulse Ox 98 F 84 18 139/87 H 100 06/01/19 15:10 06/01/19 15:10 06/01/19 15:10 06/01/19 15:10 06/01/19 15:10 - Laboratory Result Diagrams: 06/01/19 16:45 06/01/19 16:45 Laboratory results interpreted by me: 06/01/19 16:45 Carbon Dioxide 31 H Glucose 139 H Discharge - Discharge Clinical Impression: Dizziness Cerumen impaction Qualifiers: Laterality: left Qualified Code(s): H61.22 - Impacted cerumen, left ear Condition: Stable Disposition: HOME, SELF-CARE Instructions: Cerumen Impaction ([facility]), Dizziness ([facility]), Vertigo ([facility]) Additional Instructions: Follow up with your primary care doctor or the primary care doctor listed in your discharge paperwork. If you continue to have dizzy episodes, consider follow up with an ENT Doctor. Follow up with an Eye Doctor for a formal eye exam for the floaters you are seeing. Referrals: ALKA MCCURDY MD [ACTIVE STAFF] - Follow up as needed ANNIE PAN MD [ACTIVE STAFF] - Follow up as needed
[2019-06-01 19:00] LABS: URINE AMPHETAMINES SCREEN NEGATIVE; URINE BARBITURATES SCREEN NEGATIVE; URINE MARIJUANA (THC) SCREEN NEGATIVE; URINE METHADONE SCREEN NEGATIVE; URINE PHENCYCLIDINE SCREEN NEGATIVE
[2019-06-01 19:01] LABS: URINE BENZODIAZEPINES SCREEN UNCONFIRMED POSITIVE; URINE COCAINE SCREEN UNCONFIRMED POSITIVE
[2019-06-01 20:46] VITALS: BP 149/88
== END 2019-06-01 20:40 | disposition home or self-care (01) ==
LOC: ER 14:59
DX: H61.22 Impacted cerumen, left ear (principal); R42 Dizziness and giddiness; R11.2 Nausea with vomiting, unspecified; Z86.19 Personal history of other infectious and parasitic diseases; Z86.14 Personal history of Methicillin resistant Staphylococcus aureus infection; Z88.0 Allergy status to penicillin; Z88.6 Allergy status to analgesic agent
CPT/HCPCS: 99284; 36415; 83690; 85025; 80053; 81001; 80307; A9270 ×2; S0119